=== PATIENT | female | born 1965 | race Caucasian/White ===

== ENCOUNTER 2018-10-17 07:51 | Emergency (ER) | payer OTHER ==
[2018-10-17 08:40] VITALS: BP 119/90
--- NOTE | 2018-10-17 10:07 | ED ---
Laceration/Wound HPI - HPI Summary HPI Summary: Patient is a 53-year-old female who presents emergency department for laceration to her left distal thumb that occurred at work just prior to arrival. Patient states she works at [employer] and was cutting lettuce when she accidentally cut the tip of her left thumb. Symptoms are mild in severity. Last tetanus immunization was within one year. Symptoms are mild in severity. Touching affected area makes symptoms worse. Rest makes symptoms better. - History of Current Complaint Stated Complaint: CUT FINGER AT WORK PER PT Time Seen by Provider: 10/17/18 08:05 Hx Obtained From: Patient Pain Intensity: 3 Pain Scale Used: 0-10 Numeric - Allergy/Home Medications Allergies/Adverse Reactions: Allergies Allergy/AdvReac Type Severity Reaction Status Date / Time bee venom protein (honey bee) Allergy Anaphylatic Verified 10/17/18 07:56 Shock PMH/Surg Hx/FS Hx/Imm Hx Previously Healthy: Yes - Immunization History Date of Tetanus Vaccine: UTD Infectious Disease History: No Infectious Disease History: Denies: Traveled Outside the [place] in Last 30 Days - Social History Occupation: Employed Full-time Lives: With Family Alcohol Use: None Substance Use Type: Reports: None Smoking Status (MU): Never Smoked Tobacco Review of Systems Positive: Other - laceration to left thumb Neurological: Negative Negative: Weakness, Paresthesia, Numbness All Other Systems Reviewed And Are Negative: Yes Physical Exam Triage Information Reviewed: Yes Vital Signs On Initial Exam: Initial Vitals Temp Pulse Resp BP Pulse Ox 96.6 F 89 18 141/94 98 10/17/18 07:54 10/17/18 07:54 10/17/18 07:54 10/17/18 07:54 10/17/18 07:54 Vital Signs Reviewed: Yes Appearance: Positive: Well-Appearing - Pt. sitting on bed in NAD. Daughter present. Skin: Positive: Warm, Dry Head/Face: Positive: Normal Head/Face Inspection Musculoskeletal: Positive: Other - Small, superficial avulsion noted to distal tip of left thumb. No active bleeding. Full ROM of digit without bony tenderness Neurological: Positive: Normal, CN Intact II-III Psychiatric: Positive: Affect/Mood Appropriate Diagnostics - Vital Signs Vital Signs Temp Pulse Resp BP Pulse Ox 10/17/18 08:39 98.4 F 87 18 119/90 97 10/17/18 07:54 96.6 F 89 18 141/94 98 - Laboratory Lab Statement: Any lab studies that have been ordered have been reviewed, and results considered in the medical decision making process. Laceration Repair Course/Dx - Course Course Of Treatment: Patient presenting with superficial finger avulsion. Bleeding is controlled. Wound was cleansed with normal saline and dressed with triple antibiotic ointment and sterile dressing. Advised patient to keep wound clean and dry. To follow-up with family doctor for redness, swelling or drainage from wound. Patient understands and agrees with plan. - Differential Dx Differental Diagnoses: Laceration - Clinical Impression Provider Diagnoses: Fingertip avulsion Discharge - Sign-Out/Discharge Documenting (check all that apply): Patient Departure Patient Received Moderate/Deep Sedation with Procedure: No - Discharge Plan Condition: Good Disposition: HOME Patient Education Materials: Skin Avulsion (ED) Forms: *Work Release Referrals: [facility] [Outside] Additional Instructions: Follow up with the [facility] for wound recheck if needed Keep wound clean and dry Keep wound bandaged and wear glove while at work Ice and elevate Tylenol or Motrin for pain as directed Apply pressure and elevate hand if bleeding returns Return to ER for redness, swelling or yellow drainage from wound - Billing Disposition and Condition Condition: GOOD Disposition: Home
== END 2018-10-17 08:39 | disposition home or self-care (01) ==
LOC: ED 07:51
DX: S61.012A Laceration without foreign body of left thumb without damage to nail, initial encounter (principal); W26.0XXA Contact with knife, initial encounter; Y93.G3 Activity, cooking and baking; Y92.511 Restaurant or cafe as the place of occurrence of the external cause; Y99.0 Civilian activity done for income or pay
CPT/HCPCS: 99281